=== PATIENT | female | born 1950 | race Caucasian/White ===

== ENCOUNTER 2017-10-21 12:51 | Day surgery (SDC) | payer MEDICARE, OTHER, SELFPAY ==
[2017-10-21 13:30] VITALS: BP 125/85; PULSE 96; RESP 16; TEMP 36.1; O2SAT 100; BMI 31.9
[2017-10-21] MEDS: SODIUM CHLORIDE 0.9% 1,000 ML 200 ML IV (13:38)
[2017-10-21] MEDS: LACTATED RINGERS 1,000 ML 42 ML IV (14:30)
--- NOTE | 2017-10-21 14:32 | PM.HP.1 ---
History of Present Illness Date Patient Seen: 10/21/17 Time Patient Seen: 14:33 Chief complaint: [id number] SCREENING COLONOSCOPY Narrative: Pleasant and healthy lady who is here for her first screening colonoscopy. She denies any problems or symptoms related to the function of her GI tract. She reports she is in her usual state of health and needs a colonoscopy as part of a health maintenance program. Patient History Surgical History History of third molar tooth extraction Family & Social History Family History: Reviewed 10/21/17 by Petra Moura MD Social History: household members spouse Meds Home Medications Medication Instructions Recorded Confirmed Type [ANTIHISTAMINE] #0 06/13/17 History [SUBLINGUAL ALLERGY D] #0 06/13/17 History [VITAMIN B12] #0 06/13/17 History aspirin 81 mg PO QDAY #0 06/13/17 10/21/17 History biotin 5,000 mcg PO DIRECTED #0 06/13/17 10/21/17 History multivitamin [Multiple Vitamins] 1 tab PO QDAY #0 06/13/17 10/21/17 History zinc gluconate 50 mg PO #0 06/13/17 History triamterene-hydrochlorothiazid 1 tab PO QDAY #0 07/18/17 10/21/17 History varicella-zoster [id number] (PF) 0.5 ml IM X1 #1 ea 07/18/17 Rx [Shingrix (PF)] Allergies Allergy/AdvReac Type Severity Reaction Status Date / Time No Known Allergies Allergy Verified 10/21/17 13:33 Review of Systems Review of Systems All systems reviewed & are unremarkable except as noted in HPI and below Exam Vital Signs (past 8 hours): - 10/21/17 13:30 Temperature 96.9 F L Pulse Rate 96 H Respiratory Rate 16 Blood Pressure 125/85 H Pulse Oximetry 100 Oxygen Delivery Method Room Air Narrative Exam Narrative: Very pleasant healthy-appearing lady in no obvious distress HEENT: Normocephalic and atraumatic, pupils equal round reactive to light accommodation with anicteric sclera Lungs: Clear to auscultation bilaterally Heart: Regular rate and rhythm without murmur rub or gallop Abdomen: Soft, nontender, active bowel sounds Extremities: Warm and well perfused Assessment & Plan Plan: Assessment/Plan Narrative: 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 She is here for her 1st screening colonoscopy. We discussed the risks and benefits of the procedure and the patient expressed desire to complete the process today.
[2017-10-21] MEDS: ONDANSETRON 4 MG/2 ML INJ IV (14:40)
--- NOTE | 2017-10-21 14:41 | SUR.OPER ---
to endo from opd via cart respirations unlabored iv patent positioned per self for procedure
--- NOTE | 2017-10-21 15:11 | PM.OP.1 ---
Operative Date/Time/Diagnoses Date of procedure: 10/21/17 Time of procedure: 15:11 Pre-op diagnosis: Screening colonoscopy Post-op diagnosis: same Procedure & Clinicians Procedure: Colonoscopy to the cecum with polypectomy Same procedure as scheduled: Yes Indications: No prior colonoscopy Surgeon: Petra Moura Click Yes if Unassisted: Yes Anesthesia Type: Sedation (Versed 6 mg; fentanyl 200 mcg) Operative Notes Findings: 1. Excellent prep 2. Two to 3 cm pedunculated polyp at 30 cm from the anal verge. Removed in 2 pieces with snare and cautery. The entire specimen is submitted for pathology 3. Significant sigmoid diverticulosis with large pockets and false passages. No evidence of inflammation 4. Grade 2 internal hemorrhoids without evidence of hemorrhage 5. Prolapsing and enlarged external hemorrhoids Closure Type: not applicable Specimen(s): other (Polyp at 30 cm from the anal verge) Estimated Blood Loss (mL): 1 Procedure in detail: After obtaining informed consent, the patient was brought to the GI suite and placed in the left lateral decubitus position on the examination table. After placement of appropriate monitors, the patient was given incremental doses of Versed and Fentanyl until an appropriate level of sedation was achieved. A time out was held per SCOAP protocol. A digital rectal examination was performed and did not reveal any masses or obstructing lesions. The colonoscope was gently passed into the patient's anus and the entire colon navigated to the level of the cecum with minimal difficulty. Once in the cecum, the scope was withdrawn being sure to go before and beyond all mucosal folds and prominences and get an excellent examination. At 30 cm from the anal verge, we noted a long pedunculated polyp. It was on a thick stalk. This was removed in 2 pieces with snare and cautery and submitted for pathology. Just distal to this region, there is significant diverticulosis with false passages and a mixture of large and small tics. There was no evidence of inflammation. Other findings are noted above. At the level of the rectal vault, the scope was retroflexed and the internal anal canal was examined. The scope was straightened and air aspirated from the colon. The instrument was removed from the patient's body and the procedure was concluded. Total sedation time was 30 min Total withdrawal time was 17 min The patient was allowed to awaken from sedation without difficulty and taken to the post-anesthesia care unit in good condition. Complications: none Condition: stable Disposition: PACU Plan for aftercare: 1. Discharge to home 2. We will contact you with pathology results and recommendations
[2017-10-21] MEDS: MIDAZOLAM 5 MG/5 ML VIAL 6 MG IV (15:15)
[2017-10-21] MEDS: fentaNYL 250 MCG/5 ML INJ 200 MCG IV (15:15)
--- NOTE | 2017-10-21 15:15 | SUR.OPER ---
tolerated procedure well
[2017-10-21 15:19] VITALS: BP 126/81; PULSE 87; RESP 16; TEMP 36; O2SAT 97
[2017-10-21 15:21] VITALS: BP 125/90; PULSE 91; RESP 16; O2SAT 97
[2017-10-21 15:23] VITALS: BP 123/85; PULSE 86; RESP 14; TEMP 37.3; O2SAT 100
--- NOTE | 2017-10-31 12:44 | PATH_ITS ---
Specimen ID: [id number] Control ID: [facility] PATHOLOGY ONLY [id number] [address] [place] [address] Patient Details AMOR RIVERO : 1950 Age(y/m/d): Gender: F SSN: Additional Information: Clinical Info: [id number] Specimen Details Date collected: 10/21/2017 032 Local Date received: 10/22/2017 Date entered: 10/22/2017 Date reported: 10/24/2017 1809 ET Physician Details Ordering: Jak LOVE Referring: ID: Pathology Report Tests Ordered: Clinician Provided ICD Code(s) & Clinical History: Material Submitted: () Gross Description: (01) Received one formalin-filled container labeled with the patient's name and labeled colon polyp at 30 cm. In the same container are two portions of tissue. The first consists of a 0.8 x 0.8 x 0.7 cm portion of tissue. Bisected and totally submitted in cassette A1. The second piece measures 0.7 x 0.6 x 1.6 cm. Bisected and totally submitted in A2. ([facility] [id number] /[facility] COLON POLYP AT 30CM Diagnosis: (02) Colon Polyp At 30 CM: Tubular adenoma. BFI/10/23/2017 Pathologist Provided ICD Code(s): (02) D12.6 CPT Codes: (02) [id number] This is an amended report due to a clerical error. There is no change in the diagnosis. This is an amended report in order for the results to cross the electronic interface. The final diagnosis is unchanged. Electronically signed by (02) Allie Rojas MD, Pathologist NPI- [id number]
== END 2017-10-21 15:52 | disposition home or self-care (01) ==
PROVIDERS: PCP Family Medicine; Visit Provider Surgery
PROC: 0DJD8ZZ Inspection of Lower Intestinal Tract, Via Natural or Artificial Opening Endoscopic (ICD-10-PCS; CPT 45378; principal; 2017-10-21 14:00)
DX: Z12.11 Encounter for screening for malignant neoplasm of colon (principal); K57.30 Diverticulosis of large intestine without perforation or abscess without bleeding; K64.1 Second degree hemorrhoids; K64.4 Residual hemorrhoidal skin tags; D12.5 Benign neoplasm of sigmoid colon
CPT/HCPCS: 45385; 88305; 99152; 99153; J2250; J2405; J3010

== ENCOUNTER → 2018-11-26 09:00 | Outpatient (CLI) | payer MEDICARE, OTHER, SELFPAY ==
[2018-11-26 09:50] LABS: Add Manual Diff / Slide Review NO; Basophils Absolute Auto 0 /uL (0-100); Basophils Percent Auto 1.1 % (0-2); Eosinophils Absolute Auto 100 /uL (0-450); Eosinophils Percent Auto 2.7 % (2-4); Hematocrit 40.3 % (36-46); Hemoglobin 14.1 g/dL (12.0-16.0); Lymphocytes Absolute Auto 1500 /uL (1100-4500); Mean Corpuscular HGB Conc 34.8 % (30-36); Mean Corpuscular Hemoglobin 30.5 PG (26-34); Mean Corpuscular Volume 87.5 fL (80-100); Monocytes Absolute Auto 300 /uL (0-900); Monocytes Percent Auto 8.3 % (3-14); Neutrophils Absolute Auto 2000 /uL (1500-7000); Neutrophils Percent Auto 50.9 % (50-75); Platelet Count 293 X10^3/uL (150-400); Red Blood Cell Count 4.61 X10^6/uL (4.0-5.2); White Blood Cell Count 3.9 X10^3/uL (4.5-11.0)
[2018-11-26 10:13] LABS: Alanine Aminotransferase 28 IU/L (9-52); Albumin 4.2 g/dL (3.5-5.0); Albumin Globulin Ratio 1.4 (1.0-2.8); Alkaline Phosphatase 67 U/L (38-126); Aspartate Aminotransferase 30 IU/L (14-36); Bilirubin Total 0.4 mg/dL (0.2-1.3); Blood Urea Nitrogen 18 mg/dL (7-17); Calcium 10.7 mg/dL (8.4-10.2); Carbon Dioxide 33 mmol/L (22-32); Chloride 99 mmol/L (98-107); Estimated Glomerular Filt Rate > 60.0 mL/min (>60); Globulin 3.1 g/dL (1.7-4.1); Glucose 101 mg/dL (80-110); HEMOLYSIS < 15 (0-50); Potassium 3.8 mmol/L (3.4-5.1); Sodium 138 mmol/L (137-145); Total Protein 7.3 g/dL (6.3-8.2)
== END ==
PROVIDERS: PCP Family Medicine; Referring Provider Otolaryngology Otology & Neurotology; Visit Provider Nurse Practitioner
DX: Z01.812 Encounter for preprocedural laboratory examination (principal)
CPT/HCPCS: 36415; 80053; 85025

== ENCOUNTER → 2018-12-01 14:28 | Outpatient (CLI) | payer MEDICARE, OTHER, SELFPAY | PROVIDERS: PCP Family Medicine; Visit Provider Family Medicine | DX: E83.52 Hypercalcemia (principal) | CPT/HCPCS: 36415; 82310 ==

== ENCOUNTER → 2019-01-25 11:18 | Outpatient (CLI) | payer MEDICARE, OTHER, SELFPAY ==
[2019-01-28 10:39] LABS: Ionized Calcium 5.7 mg/dL (4.8-5.6)
[2019-01-30 14:56] LABS: Calcium 10.6 mg/dL (8.6-10.4); Parathyroid Hormone, Intact 49 pg/mL (14-64)
== END ==
PROVIDERS: PCP Family Medicine; Visit Provider Family Medicine
DX: E83.52 Hypercalcemia (principal)
CPT/HCPCS: 36415; 82330; 83970

== ENCOUNTER → 2019-02-11 11:47 | Outpatient (CLI) | payer MEDICARE, OTHER, SELFPAY ==
[2019-02-11 13:08] LABS: Alanine Aminotransferase 27 IU/L (<35); Albumin Globulin Ratio 1.6 (1.0-2.8); Alkaline Phosphatase 66 U/L (38-126); Aspartate Aminotransferase 28 IU/L (14-36); BUN Creatinine Ratio 23.3 (6-22); Bilirubin Total 0.3 mg/dL (0.2-1.3); Blood Urea Nitrogen 14 mg/dL (7-17); Calcium 10.3 mg/dL (8.4-10.2); Carbon Dioxide 32 mmol/L (22-32); Chloride 102 mmol/L (98-107); Estimated Glomerular Filt Rate > 60.0 mL/min (>60); Globulin 2.5 g/dL (1.7-4.1); Glucose 73 mg/dL (80-110); HEMOLYSIS < 15 (0-50); Potassium 3.8 mmol/L (3.4-5.1); Sodium 140 mmol/L (137-145); Total Protein 6.5 g/dL (6.3-8.2)
== END ==
PROVIDERS: PCP Family Medicine; Visit Provider Family Medicine
DX: E83.52 Hypercalcemia (principal)
CPT/HCPCS: 36415; 80053

== ENCOUNTER → 2020-01-27 12:25 | Outpatient (CLI) | payer MEDICARE, OTHER, SELFPAY ==
[2020-01-27 14:08] LABS: Calcium 10.4 mg/dL (8.4-10.2)
== END ==
PROVIDERS: PCP Family Medicine; Referring Provider Family Medicine; Visit Provider Family Medicine
DX: E83.52 Hypercalcemia (principal)
CPT/HCPCS: 36415; 82310

== ENCOUNTER → 2023-10-24 09:36 | Outpatient (CLI) | payer MEDICARE, OTHER, SELFPAY ==
[2023-10-24 10:52] LABS: Add Manual Diff / Slide Review NO; Basophils Absolute Auto 0 /uL (0-100); Basophils Percent Auto 1.2 % (0-2); Eosinophils Absolute Auto 100 /uL (0-450); Eosinophils Percent Auto 2.2 % (2-4); Hematocrit 36.8 % (36-46); Hemoglobin 12.3 g/dL (12.0-16.0); Lymphocytes Absolute Auto 1300 /uL (1100-4500); Lymphocytes Percent Auto 35.7 % (25-40); Mean Corpuscular HGB Conc 33.5 % (30-36); Mean Corpuscular Hemoglobin 30.2 PG (26-34); Monocytes Absolute Auto 300 /uL (0-900); Monocytes Percent Auto 9.1 % (3-14); Neutrophils Absolute Auto 1900 /uL (1500-7000); Neutrophils Percent Auto 51.8 % (50-75); Platelet Count 270 X10^3/uL (150-400); Red Blood Cell Count 4.09 X10^6/uL (4.0-5.2); Red Cell Distribution Width 13.2 % (11.6-14.8); White Blood Cell Count 3.7 X10^3/uL (4.5-11.0)
[2023-10-24 11:12] LABS: Alanine Aminotransferase 27 IU/L (<35); Albumin 4.3 g/dL (3.5-5.0); Albumin Globulin Ratio 1.6 (1.0-2.8); Alkaline Phosphatase 77 U/L (38-126); Aspartate Aminotransferase 26 IU/L (14-36); Bilirubin Total 0.4 mg/dL (0.2-1.3); Blood Urea Nitrogen 16 mg/dL (7-17); Calcium 10.1 mg/dL (8.4-10.2); Carbon Dioxide 30 mmol/L (22-32); Chloride 103 mmol/L (98-107); Cholesterol 258 mg/dL (140-199); Estimated Glomerular Filt Rate > 60 mL/min (>60); Globulin 2.7 g/dL (1.7-4.1); Glucose 108 mg/dL (80-110); HDL Cholesterol 57 mg/dL (40-60); HEMOLYSIS < 15 (0-50); LDL Cholesterol Calculated 157 mg/dL (<100); Potassium 3.9 mmol/L (3.4-5.1); Sodium 138 mmol/L (137-145); Triglycerides 221 mg/dL (35-150)
[2023-10-24 14:35] LABS: Hemoglobin A1C% w Est Avg Glu 6.2 % (4.0-6.0)
== END ==
LOC: LAB 09:38
PROVIDERS: PCP Family Medicine; Referring Provider Family Medicine; Visit Provider Family Medicine
DX: Z00.00 Encounter for general adult medical examination without abnormal findings (principal); H81.09 Meniere's disease, unspecified ear; E66.9 Obesity, unspecified
CPT/HCPCS: 36415; 80053; 80061; 83036; 85025

== ENCOUNTER → 2024-09-13 08:29 | Outpatient (CLI) | payer MEDICARE, OTHER, SELFPAY ==
--- NOTE | 2024-09-13 08:32 | DI.RAD.S_ITS ---
PROCEDURE: XR HIP W PEL IF DONE RT 2V INDICATIONS: (see below) TECHNIQUE: AP pelvis with lateral view(s) of the right hip(s). COMPARISON: None. FINDINGS: Bones: No fractures or dislocations. 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 Pelvic ring appears intact. No suspicious bony lesions. Soft tissues: The visualized bowel gas pattern is normal. No suspicious soft tissue calcifications. IMPRESSION: Degenerative change of the right hip without evidence of acute bony abnormality. Dictated by: Jeramy Diaz M.D. on 09/14/2024 at 2:28 Approved by: Jeramy Diaz M.D. on 09/14/2024 at 2:29
[2024-09-13 09:38] LABS: Alanine Aminotransferase 29 IU/L (<35); Albumin 4.2 g/dL (3.5-5.0); Albumin Globulin Ratio 1.6 (1.0-2.8); Alkaline Phosphatase 74 U/L (38-126); Aspartate Aminotransferase 30 IU/L (14-36); BUN Creatinine Ratio 29.8 (6-22); Bilirubin Total 0.3 mg/dL (0.2-1.3); Blood Urea Nitrogen 17 mg/dL (7-17); Calcium 10.3 mg/dL (8.4-10.2); Carbon Dioxide 28 mmol/L (22-32); Chloride 103 mmol/L (98-107); Estimated Glomerular Filt Rate > 60 mL/min (>60); Globulin 2.6 g/dL (1.7-4.1); Glucose 122 mg/dL (70-99); HEMOLYSIS < 15 (0-50); Potassium 4.1 mmol/L (3.4-5.1); Sodium 138 mmol/L (137-145); Total Protein 6.8 g/dL (6.3-8.2)
[2024-09-13 09:42] LABS: Rheumatoid Factor < 8.6 IU/mL (<12.0)
[2024-09-14 05:14] LABS: CRP, High Sensitivity 2.38 mg/L (0.00-3.00)
== END ==
LOC: LAB 08:31
PROVIDERS: PCP Family Medicine; Referring Provider Family Medicine; Visit Provider Family Medicine
DX: G89.29 Other chronic pain (principal); M15.0 Primary generalized (osteo)arthritis; E66.9 Obesity, unspecified; M25.551 Pain in right hip; M79.606 Pain in leg, unspecified
CPT/HCPCS: 36415; 73502; 80053; 86140; 86430

== ENCOUNTER → 2024-10-20 09:06 | Outpatient (CLI) | payer MEDICARE, OTHER, SELFPAY ==
[2024-10-20 09:45] LABS: Add Manual Diff / Slide Review NO; Hematocrit 37.4 % (36-46); Hemoglobin 12.7 g/dL (12.0-16.0); Lymphocytes Absolute Auto 1400 /uL (1100-4500); Mean Corpuscular HGB Conc 34.0 % (30-36); Mean Corpuscular Hemoglobin 30.3 PG (26-34); Mean Corpuscular Volume 89.2 fL (80-100); Platelet Count 270 X10^3/uL (150-400)
[2024-10-20 09:58] LABS: Hemoglobin A1C% w Est Avg Glu 5.9 % (4.0-6.0)
[2024-10-20 10:07] LABS: Cholesterol 246 mg/dL (140-199); HDL Cholesterol 49 mg/dL (40-60); Triglycerides 192 mg/dL (35-150)
[2024-10-20 10:20] LABS: Vitamin D 25 Hydroxy (D3) 35.6 ng/mL (30.0-100.0)
== END ==
PROVIDERS: PCP Family Medicine; Referring Provider Family Medicine; Visit Provider Family Medicine
DX: R73.03 Prediabetes (principal); E66.9 Obesity, unspecified; E78.00 Pure hypercholesterolemia, unspecified; M19.90 Unspecified osteoarthritis, unspecified site; H81.09 Meniere's disease, unspecified ear
CPT/HCPCS: 36415; 80061; 82306; 83036; 85025